=== PATIENT | female | born 1960 | race Caucasian/White ===

== ENCOUNTER 2016-11-05 05:09 | Day surgery (SDC) | payer BC ==
[2016-11-05] VITALS (10 sets, daily range): BP systolic 135–148; BP diastolic 72–89; Ht 160 cm; Wt 90.9 kg
[~2016-11-05] VITALS: Ht 160 cm; Wt 90.9 kg
[2016-11-05] MEDS ORDERED: HYZAAR 100-25 T1 TAB PO (06:12)
[2016-11-05] MEDS ORDERED: CYMBALTA30 MG PO (06:12)
[2016-11-05] MEDS ORDERED: ULTRAM50 MG PO (06:13)
[2016-11-05] MEDS ORDERED: DEXILANT60 MG PO (06:13)
[2016-11-05] MEDS ORDERED: ESGIC TABLET1 TAB PO (06:14)
[2016-11-05] MEDS ORDERED: KLONOPIN1 MG PO (06:15)
[2016-11-05] MEDS ORDERED: BENTYL 20 MG TA20 MG PO (06:17)
[2016-11-05] MEDS ORDERED: ZANAFLEX4 MG PO (06:18)
[2016-11-05] MEDS ORDERED: LEVSIN/ANASP0.125 MG PO (06:18)
[2016-11-05] MEDS ORDERED: URIBEL PO (06:20)
[2016-11-05 07:30] LABS: BASOPHILS 0.3 % (0.0-2.0); EOSINOPHILS 1.1 % (0-7); HEMATOCRIT 40.3 % (36.0-48.0); HEMOGLOBIN 13.6 g/dL (12-16); IMMATURE GRANULOCYTES 0.1 % (0-5); LYMPHOCYTES 27.5 % (15-50); MCH 31.5 pg (26.0-34.0); MCHC 33.7 g/dL (31.0-37.0); MCV 93.3 fL (80.0-100.0); MEAN PLATELET VOLUME 9.9 fL (7.4-10.4); MONOCYTES 9.7 % (2-11); NEUTROPHILS 61.3 % (40-80); PLATELET COUNT 203 10x3/uL (130-400); RBC 4.32 10x6/uL (4.00-5.40); RDW 13.4 % (11.5-14.5)
[2016-11-05 07:43] LABS: ANION GAP 13.1 mmol/L (8-16); CALCIUM 9.7 mg/dL (8.5-10.1); CARBON DIOXIDE 29.2 mmol/L (21.0-32.0); POTASSIUM - SERUM 3.3 mmol/L (3.5-5.1)
--- NOTE | 2016-11-05 10:45 | NUR ---
RECEIVED TO ROOM 2213 AT THIS TIME FROM RECOVERY. PT IS LETHARGIC, BUT RESPONSIVE TO VERBAL STIMULI. AT BEDSIDE. POST OP VITALS INITIATED PER PROTOCOL. IV TO RIGHT HAND PATENT. LAP SITES X5 TO PT'S ABOMEN, ALL C/D/I. SCHEDULED MEDICATIONS SET UP AND ASSESSMENT PERFORMED. CALL LIGHT IN REACH, ORIENTED PT AND TO ROOM. WILL CONTINUE WITH PLAN OF CARE.
--- NOTE | 2016-11-05 14:00 | NUR ---
PT DENIES NEEDS AT THIS TIME. REMAINS NPO AT THIS TIME. PROVIDED PT WITH MOUT SWABS AND MOISTURIZER. AT BEDSIDE. GUARD DRIVER IN USE FOR PAIN CONTROL. CALL LIGHT IN REACH, WILL CONTINUE WITH PLAN OF CARE.
--- NOTE | 2016-11-05 15:45 | NUR ---
ASSISTED PT TO BATHROOM X2 ASSIST. VOIDED 300ML OF CLEAR, BLUISH/GREEN URINE. REMAINS AT BEDSIDE. ASSISTED PT BACK TO BED. SCD'S ON AND IN WORKING ORDER. COVER CREASER IN USE FOR PAIN CONTROL. WILL CONTINUE WITH PLAN OF CARE.
--- NOTE | 2016-11-05 17:12 | NUR ---
USING INCENTIVE SPIROMETER AT THIS TIME WITH INSPIRATORY VOLUME OF 1,500 ML. FAMILY AT BEDSIDE. ALERT AND ORIENTED X4. FRUIT GRADER OPERATOR IN USE FOR PAIN. IV TO RIGH THAND REMAINS PATENT. WILL CONTINUE WITH PLAN OF CARE.
--- NOTE | 2016-11-05 19:30 | NUR ---
Patient received in bed with at bedside. Denies pain at this time, being managed with Demerol PLUMBING AND HEATING MECHANIC, re-educated on use of same, verbalized understanding. PIV in right hand infusing NS @125ml/hr. No signs of infection or infiltration at IV site. Laparoscopic sites x 5 have dry, clean and intact bandaids with no signs of drainage, over abdomen. Patient reminded to use pillow to splint for deep breathing exercises and reminded to use incentive spirometer. SCDs on. Remains NPO for esophagram in the morning.
--- NOTE | 2016-11-06 00:30 | NUR ---
Resting, eyes closed, no signs of distress. Noted to be using Demerol MAJOR GIFTS MANAGER to manage abdominal pain. at bedside. Patient has been up to bathroom and voided earlier.
[2016-11-06 05:16] LABS: BASOPHILS 0.1 % (0.0-2.0); EOSINOPHILS 0.2 % (0-7); HEMATOCRIT 38.5 % (36.0-48.0); HEMOGLOBIN 12.6 g/dL (12-16); IMMATURE GRANULOCYTES 0.1 % (0-5); LYMPHOCYTES 16.4 % (15-50); MCH 30.7 pg (26.0-34.0); MCHC 32.7 g/dL (31.0-37.0); MCV 93.9 fL (80.0-100.0); MEAN PLATELET VOLUME 9.6 fL (7.4-10.4); MONOCYTES 8.4 % (2-11); NEUTROPHILS 74.8 % (40-80); PLATELET COUNT 186 10x3/uL (130-400); RDW 13.7 % (11.5-14.5); WBC 8.3 10x3/uL (4.8-10.8)
[2016-11-06 05:37] LABS: CALC OSMOLALITY 277 mosm/kg (275-300); CALCIUM 8.3 mg/dL (8.5-10.1); CARBON DIOXIDE 29.3 mmol/L (21.0-32.0); CHLORIDE - SERUM 103 mmol/L (98-107); CREATININE - SERUM 0.8 mg/dL (0.6-1.3); GLUCOSE 117 mg/dL (74-106); POTASSIUM - SERUM 3.5 mmol/L (3.5-5.1); SODIUM 140 mmol/L (136-145); eGFR NON AFRICAN AMERICAN 78 mL/min (90-120)
[2016-11-06 05:41] LABS: UREA NITROGEN 8 mg/dL (7-18)
--- NOTE | 2016-11-06 06:30 | NUR ---
Slept fairly well throughout the night. No voiced complaints, dressings remain intact on abdomen. IV continues to infuse well. SCDs on.
[2016-11-06 08:13] VITALS: BP 142/62
--- NOTE | 2016-11-06 09:57 | NUR ---
PT SEEN AND ASSESSED. NO COMPLAINTS AT PRESENT. LARGE BANDAIDS X 5 NOTED TO ABDOMEN. SCDS ON BILAT. STATES PAIN IS CONTROLLED PER RETAIL KEY HOLDER. SPOUSE AT BEDSIDE AND CALL LIGHT IN REACH
[2016-11-06 11:56] VITALS: BP 133/72
[2016-11-06 15:52] VITALS: BP 120/55
[2016-11-06] MEDS ORDERED: REGLAN10 MG PO (16:38)
[2016-11-06] MEDS ORDERED: PERCOCET 10/3251 TA1 PO (16:38)
[2016-11-06] MEDS ORDERED: PHENERGAN25 M1 PO (16:39)
--- NOTE | 2016-11-06 20:00 | NUR ---
PT READY FOR DISCHARGE HOME. TORADOL IV GIVEN FOR PAIN CONTROL THEN IV REMOVED PT DRESSED AND SPOUSE AT BEDSIDE. DISCHARGED HOME PER WC WITH SPOUSE.
--- NOTE | 2016-11-12 13:47 | OP ---
PATIENT NAME: OLIVER VELEZ MEDICAL RECORD: [id number] :60 LOCATION:D.OPS ADMISSION DATE: SURGEON: EAN WILSON MD DATE OF OPERATION: 11/05/2016 PREOPERATIVE DIAGNOSES: 1. Gastroesophageal reflux disease. 2. Hypertension. 3. Morbid obesity. POSTOPERATIVE DIAGNOSES: 1. Gastroesophageal reflux disease. 2. Hypertension. 3. Morbid obesity. PROCEDURE: Laparoscopic Zahra fundoplication. SURGEON: Ean Wilson MD REPORT OF PROCEDURE: The patient's abdomen was prepped and draped in sterile fashion. A Veress needle was inserted in the left upper quadrant and abdomen was insufflated. An 11-mm Visiport trocar was then inserted in the midline just above the umbilicus. Under direct visualization, I could see the patient's Veress needle and there was no sign of any injury to bowel or surrounding structures. A 12-mm trocar was placed in the left subcostal region. A 5-mm trocar was placed in the epigastrium, a 5-mm trocar was placed in the left lateral abdomen and a 5-mm trocar was placed in the right lateral abdomen. A liver retractor was inserted and the left lobe of the liver was elevated. We then took down the lesser omentum using Harmonic scalpel all the way up to the right side of the right osmar. We dissected out the right side of the right osmar and penetrated through this into the patient's thoracic cavity. We dissected out the attachments of the esophagus in the thoracic cavity. We did as far as we could go. We dissected out the osmar anteriorly and posteriorly as far as can see. We then took to the greater curvature of the stomach and took down the short gastric using Harmonic scalpel. We continued this dissection around to the left side of the right osmar. Again, we dissected the left side of the right osmar out until at this point, we had a 360 degree inspection of the patient's esophagus. The vagus nerve was visualized and was intact. We then reapproximated the osmar using interrupted 0 Polydek times 2. There was a posterior wrap formed in a 360-degree fashion. The fundus of the stomach was pulled posterior to the esophagus. The wrap was completed with interrupted 0 Polydek times 3. All 3 sutures incorporated to bite off the esophagus. The wrap appeared to be in good position. There was no sign of any active bleeding. As we removed the liver retractor, we could see there was a slight tear in the liver and this was treated with electrocautery. There was no sign of any active bleeding. At this point, the 11 and 12 mm trocar site fascias were closed with interrupted 0 Vicryls using a Douglas-Randy suture passer device. The ports and insufflation were then removed. The incisions were all infused with a total of 20 mL of 0.25% Marcaine with epinephrine and then closed with subcutaneous 5-0 Monocryl. COMPLICATIONS: None. CONDITION: Stable. OPERATIVE REPORT [id number] OLIVER VELEZ ANESTHESIA: General endotracheal and local. BLOOD LOSS: Minimal. TRANSINT:[id number] Voice Confirmation ID: [id number] DOCUMENT ID: [id number] EAN WILSON MD at 1347 CC: MO RODRIGUES MD and MIK MTZ MD [id number] DICTATION DATE: 11/05/16 1001 LABORER/KEY MAN: 11/05/16 1025 [facility] 11/06/16 [facility] [address] [place] [address]
== END 2016-11-06 20:10 | disposition home or self-care (01) ==
LOC: D.OPS 05:09 → D.MS 05:09 → D.OPS 08:15 → D.MS 08:18 → D.OPS 11-06 20:10
PROVIDERS: Surgery
DX: K21.9 Gastro-esophageal reflux disease without esophagitis (principal); I10 Essential (primary) hypertension; E66.01 Morbid (severe) obesity due to excess calories

== ENCOUNTER 2018-01-19 20:24 | Emergency (ER) | payer BC ==
[2016-11-05 10:59] VITALS: BMI 35.5
[~2018-01-19 20:24] MED LIST: BENTYL 20 MG TA20 MG PO; CYMBALTA30 MG PO; DEXILANT60 MG PO; ESGIC TABLET1 TAB PO; HYZAAR 100-25 T1 TAB PO; KLONOPIN1 MG PO; LEVSIN/ANASP0.125 MG PO; PERCOCET 10/3251 TA1 PO; PHENERGAN25 M1 PO; REGLAN10 MG PO; ULTRAM50 MG PO; URIBEL PO; ZANAFLEX4 MG PO
[2018-01-19 21:07] LABS: BASOPHILS 0.2 % (0-2); EOSINOPHILS 1.4 % (0-7); HEMATOCRIT 41.8 % (36.0-48.0); HEMOGLOBIN 14.5 g/dL (12-16); IMMATURE GRANULOCYTES 0.1 % (0-5); LYMPHOCYTES 15.7 % (15-50); MCH 32.4 pg (26.0-34.0); MCHC 34.7 g/dL (31.0-37.0); MCV 93.5 fL (80.0-100.0); MEAN PLATELET VOLUME 9.9 fL (7.4-10.4); MONOCYTES 9.7 % (2-11); NEUTROPHILS 72.9 % (40-80); PLATELET COUNT 195 10x3/uL (130-400); RBC 4.47 10x6/uL (4.00-5.40); RDW 13.1 % (11.5-14.5); WBC 9.3 10x3/uL (4.8-10.8)
[2018-01-19 21:26] LABS: APPEARANCE CLEAR (CLEAR); COLOR YELLOW (YELLOW)
[2018-01-19 21:27] LABS: BACTERIA MODERATE /hpf (NONE SEEN); EPITHELIAL CELLS 0-5 /hpf (0-5); RED CELLS - URINE 0-5 /hpf (0-5); WHITE CELLS - URINE >50 /hpf (0-5)
[2018-01-19 21:28] LABS: ALBUMIN 3.9 g/dL (3.4-5.0); ANION GAP 11.1 mmol/L (8-16); BILIRUBIN - TOTAL 0.44 mg/dL (0.2-1.3); CALCIUM 8.8 mg/dL (8.5-10.1); CARBON DIOXIDE 30.2 mmol/L (21.0-32.0); CREATININE - SERUM 1.1 mg/dL (0.6-1.3); POTASSIUM - SERUM 3.3 mmol/L (3.5-5.1)
== END 2018-01-19 21:51 | disposition home or self-care (01) ==
LOC: D.ER 20:24
PROVIDERS: Family Medicine
DX: N39.0 Urinary tract infection, site not specified (principal); F17.200 Nicotine dependence, unspecified, uncomplicated